=== PATIENT | male | born 1955 | race Caucasian/White ===

== ENCOUNTER 2016-12-10 16:44 | Inpatient (IN) | payer MEDICAID ==
[~2016-12-10] VITALS: Ht 170.2 cm; Wt 50.9 kg
[~2016-12-10 16:44] MED LIST: AMLO10TA2 PO; ATEN25TA PO; CEFD300C37 PO; Clonidine TD; DOCU100C33 PO; FENT1PAT77 TD; FOLI-17 PO; HYDR2TAB29 PO; HYDR4TAB PO; LEVO500T47 PO; LINE600T37 PO; MAGN400T26 PO; METR500T8 PO; MULT-484 PO; Nicotine TD; ONDA4TAB10 PO; OXYC10TA6 PO; OXYC15TA60 PO; Oxycodone Hcl/Acetaminophen PO; PANT40TA3 PO; POLY17PO5 PO; THIA100T10 PO; TRAM-47 PO
[2016-12-10] MEDS ORDERED: HYDROmorphone 1 MG/ML, 1ML ONE (16:59)
[2016-12-10] MEDS ORDERED: ONDANSETRON 2MG/ML, 2ML ONE (16:59)
[2016-12-10] MEDS ORDERED: PLEASE ENTER HEIGHT AND WEIGHT MC SCH (17:00)
[2016-12-10] MEDS ORDERED: HYDROmorphone 1 MG/ML, 1ML IM ONE (17:00)
[2016-12-10] MEDS ORDERED: ONDANSETRON ODT 4 MG PO ONE (17:00)
[2016-12-10 17:09] LABS: HEMATOCRIT 51.9 % (39.2-51.8); HEMOGLOBIN 17.5 g/dL (13.7-18.0); WHITE BLOOD COUNT 12.6 x10^3/uL (3.4-10)
[2016-12-10 17:15] LABS: ASPARTATE AMINO TRANSFERASE 14 U/L (15-37); BLOOD UREA NITROGEN 74 mg/dL (7-18)
[2016-12-10] MEDS ORDERED: ONDANSETRON 2MG/ML, 2ML IVPush ONE (17:30)
[2016-12-10] MEDS ORDERED: SODIUM CHLORIDE 0.9% 1,000ML IVBOLUS ONE (17:30)
[2016-12-10] MEDS ORDERED: HYDROmorphone 1 MG/ML, 1ML IV ONE (17:30)
[2016-12-10 17:36] LABS: DIFF TOTAL CELLS COUNTED 100 CELL DIFF
[2016-12-10 17:39] LABS: VERIFY COUNTS? YES
[2016-12-10] MEDS ORDERED: FENTANYL PF 100 MCG/2ML ONE ×2 (18:29→20:17)
[2016-12-10] MEDS: FENTANYL PF 100 MCG/2ML IV PRN ×2 (18:37→20:23)
[2016-12-10] MEDS ORDERED: TRAZODONE 50MG TABLET PO PRN (20:00)
[2016-12-10] MEDS ORDERED: ONDANSETRON 2MG/ML, 2ML IVPush PRN (20:00)
[2016-12-10] MEDS ORDERED: ACETAMINOPHEN 325 MG TABLET PO PRN (20:00)
[2016-12-10] MEDS: HYDROmorphone 2 MG/ML, 1ML IVPush PRN (22:01)
[2016-12-10] MEDS: HEPARIN 5,000 UNITS/ML, 1ML SQ SCH (22:01)
[2016-12-10] MEDS: LACTATED RINGERS 1,000 ML IV SCH (22:01)
[2016-12-11] MEDS: HYDROmorphone 2 MG/ML, 1ML IVPush PRN ×6 (01:04→20:58)
[2016-12-11 01:48] VITALS: BP 117/79
[2016-12-11 01:59] VITALS: BP 133/86
[2016-12-11] MEDS: LACTATED RINGERS 1,000 ML IV SCH ×3 (04:04→19:48)
[2016-12-11 05:39] LABS: HEMATOCRIT 42.6 % (39.2-51.8); HEMOGLOBIN 14.4 g/dL (13.7-18.0); WHITE BLOOD COUNT 9.1 x10^3/uL (3.4-10)
[2016-12-11 05:59] LABS: ASPARTATE AMINO TRANSFERASE 9 U/L (15-37); BLOOD UREA NITROGEN 70 mg/dL (7-18)
[2016-12-11] MEDS ORDERED: PANTOPRAZOLE 40 MG IV IVPush SCH (07:30)
[2016-12-11 07:56] VITALS: BP 123/77
[2016-12-11] MEDS ORDERED: AMLODIPINE 5 MG TABLET PO SCH (09:00)
[2016-12-11] MEDS: HEPARIN 5,000 UNITS/ML, 1ML SQ SCH ×2 (09:30→20:58)
[2016-12-11 14:00] VITALS: BP 132/72
[2016-12-11 20:09] VITALS: BP 104/67
[2016-12-12] MEDS: HYDROmorphone 2 MG/ML, 1ML IVPush PRN ×7 (00:02→22:18)
[2016-12-12 02:00] VITALS: BP 110/67
[2016-12-12] MEDS: LACTATED RINGERS 1,000 ML IV SCH ×4 (03:07→22:25)
[2016-12-12 05:09] LABS: HEMATOCRIT 37.8 % (39.2-51.8); HEMOGLOBIN 12.6 g/dL (13.7-18.0); WHITE BLOOD COUNT 8.1 x10^3/uL (3.4-10)
[2016-12-12 05:13] LABS: ASPARTATE AMINO TRANSFERASE 8 U/L (15-37); BLOOD UREA NITROGEN 50 mg/dL (7-18)
[2016-12-12 07:52] VITALS: BP 101/69
[2016-12-12] MEDS: PANTOPROZOLE 40MG TABLET PO SCH (09:38)
[2016-12-12] MEDS: AMLODIPINE 5 MG TABLET PO SCH (09:38)
[2016-12-12] MEDS: HEPARIN 5,000 UNITS/ML, 1ML SQ SCH ×2 (09:39→20:50)
[2016-12-12 12:14] VITALS: BP 124/73
[2016-12-12] MEDS: OXYcodone IR 5MG TABLET PO PRN ×2 (14:11→19:57)
[2016-12-12 19:55] VITALS: BP 127/73
[2016-12-13] MEDS: HYDROmorphone 2 MG/ML, 1ML IVPush PRN ×6 (02:20→23:13)
[2016-12-13] MEDS: OXYcodone IR 5MG TABLET PO PRN (04:12)
[2016-12-13] MEDS: LACTATED RINGERS 1,000 ML IV SCH ×3 (04:13→20:12)
[2016-12-13 07:15] VITALS: BP 130/81
[2016-12-13 08:18] LABS: BLOOD UREA NITROGEN 28 mg/dL (7-18)
[2016-12-13] MEDS ORDERED: HYDROmorphone 2 MG/ML, 1ML IVPush PRN (10:30)
[2016-12-13] MEDS: HYDROmorphone 4MG TABLET PO SCH ×3 (11:07→20:13)
[2016-12-13] MEDS: HEPARIN 5,000 UNITS/ML, 1ML SQ SCH ×2 (11:08→20:13)
[2016-12-13] MEDS: AMLODIPINE 5 MG TABLET PO SCH (11:08)
[2016-12-13] MEDS: PANTOPROZOLE 40MG TABLET PO SCH (11:08)
[2016-12-13] MEDS: THIAMINE 100MG TABLET PO SCH (11:08)
[2016-12-13 14:34] VITALS: BP 117/65
[2016-12-13 18:58] VITALS: BP 145/74
[2016-12-14 00:39] VITALS: BP 147/80
[2016-12-14] MEDS: LACTATED RINGERS 1,000 ML IV SCH ×2 (02:14→08:45)
[2016-12-14] MEDS: HYDROmorphone 2 MG/ML, 1ML IVPush PRN ×3 (02:15→08:48)
[2016-12-14 05:15] LABS: BLOOD UREA NITROGEN 18 mg/dL (7-18)
[2016-12-14] MEDS: PANTOPROZOLE 40MG TABLET PO SCH (07:34)
[2016-12-14 08:22] VITALS: BP 139/77
[2016-12-14] MEDS: HEPARIN 5,000 UNITS/ML, 1ML SQ SCH ×2 (08:47→20:54)
[2016-12-14] MEDS: AMLODIPINE 5 MG TABLET PO SCH (08:47)
[2016-12-14] MEDS: THIAMINE 100MG TABLET PO SCH (08:47)
[2016-12-14] MEDS ORDERED: HYDROmorphone 2MG TABLET ONE (09:35)
[2016-12-14] MEDS: HYDROmorphone 4MG TABLET PO SCH ×3 (09:37→20:54)
[2016-12-14] MEDS: CYCLOBENZAPRINE 10 MG TABLET PO SCH ×3 (11:53→20:55)
[2016-12-14 12:26] VITALS: BP 148/92
[2016-12-14] MEDS: HYDROmorphone 4MG TABLET PO PRN (13:14)
[2016-12-14 18:31] VITALS: BP 162/84
[2016-12-15] MEDS: HYDROmorphone 4MG TABLET PO PRN (00:07)
[2016-12-15 01:00] VITALS: BP 145/82
[2016-12-15 07:02] VITALS: BP 167/87
[2016-12-15] MEDS ORDERED: HYDR4TAB48 PO (07:36)
[2016-12-15] MEDS: AMLODIPINE 5 MG TABLET PO SCH (08:14)
[2016-12-15] MEDS: THIAMINE 100MG TABLET PO SCH (08:14)
[2016-12-15] MEDS: HYDROmorphone 4MG TABLET PO SCH (08:14)
[2016-12-15] MEDS: CYCLOBENZAPRINE 10 MG TABLET PO SCH (08:14)
[2016-12-15] MEDS: HEPARIN 5,000 UNITS/ML, 1ML SQ SCH (08:14)
[2016-12-15] MEDS: PANTOPROZOLE 40MG TABLET PO SCH (08:18)
[2016-12-15] MEDS ORDERED: HYDROmorphone 4MG TABLET PO PRN (15:00)
[2016-12-15] MEDS ORDERED: HYDROmorphone 4MG TABLET PO SCH (16:00)
== END 2016-12-15 15:30 | disposition home or self-care (01) | DRG 682 ==
LOC: ED 18:56 → EDIP 19:24 → 3NE 20:30 → DCLOUNGE 12-15 15:20
PROVIDERS: ADMIT Hospitalist; ATTEND Internal Medicine
DX: N17.0 Acute kidney failure with tubular necrosis (principal); K85.90 Acute pancreatitis without necrosis or infection, unspecified; E44.0 Moderate protein-calorie malnutrition; F11.20 Opioid dependence, uncomplicated; K86.1 Other chronic pancreatitis; Z68.1 Body mass index [BMI] 19.9 or less, adult; I10 Essential (primary) hypertension; E86.0 Dehydration; K21.9 Gastro-esophageal reflux disease without esophagitis; Z76.5 Malingerer [conscious simulation]; Z85.828 Personal history of other malignant neoplasm of skin; Z87.891 Personal history of nicotine dependence; Z90.49 Acquired absence of other specified parts of digestive tract
CPT/HCPCS: 36415; 74020; 74176; 80048; 80053; 80061; 81003; 82040; 82150; 82436; 82570; 83605; 83690; 83735; 84100; 84133; 84300; 84443; 85025; 96361; 96374; 96375; J1170; J1644; J2405; J3010; C9113; J7030; J7120

== ENCOUNTER 2017-03-18 23:58 | Inpatient (IN) | payer MEDICAID ==
[~2017-03-18] VITALS: Ht 170.2 cm; Wt 62.6 kg
[~2017-03-18 23:58] MED LIST changes: +HYDR4TAB48 PO
[2017-03-19 00:29] LABS: HEMATOCRIT 40.4 % (39.2-51.8); HEMOGLOBIN 13.6 g/dL (13.7-18.0); WHITE BLOOD COUNT 6.9 x10^3/uL (3.4-10)
[2017-03-19 00:41] LABS: ASPARTATE AMINO TRANSFERASE 27 U/L (15-37); BLOOD UREA NITROGEN 52 mg/dL (7-18)
[2017-03-19 00:45] LABS: ACETAMINOPHEN < 2 mcg/mL (10-30)
[2017-03-19] MEDS ORDERED: SODIUM CHLORIDE 0.9% 1,000ML IVBOLUS ONE (01:00)
[2017-03-19] MEDS: SODIUM CHLORIDE 0.9% 1,000 ML IV SCH ×2 (01:29→08:39)
[2017-03-19] MEDS ORDERED: DOCUSATE 100 MG CAPSULE PO PRN (01:30)
[2017-03-19] MEDS ORDERED: POLYETHYLENE GLYCOL 17 GM PACKET PO PRN (01:30)
[2017-03-19] MEDS ORDERED: MAGNESIUM SULFATE PMX 2GM/50ML 50 ML IV ONE (01:30)
[2017-03-19] MEDS: HEPARIN 5,000 UNITS/ML, 1ML SQ SCH ×3 (06:08→21:32)
[2017-03-19 07:30] LABS: BLOOD UREA NITROGEN 49 mg/dL (7-18)
[2017-03-19 07:55] VITALS: BP 108/66
[2017-03-19 08:10] LABS: DAU SCREEN DISCLAIMER
[2017-03-19] MEDS: ACETAMINOPHEN 325 MG TABLET PO PRN ×3 (08:17→17:21)
[2017-03-19] MEDS: OXYcodone IR 5MG TABLET PO PRN ×4 (08:17→21:32)
[2017-03-19] MEDS ORDERED: FAMOTIDINE 20 MG TABLET PO SCH (09:00)
[2017-03-19] MEDS: AMLODIPINE 5 MG TABLET PO SCH (10:15)
[2017-03-19] MEDS: ATENOLOL 50 MG TABLET PO SCH (10:16)
[2017-03-19] MEDS: D5%-0.45% NACL 1,000 ML IV SCH ×2 (12:27→21:32)
[2017-03-19 14:14] VITALS: BP 101/65
[2017-03-19 18:52] VITALS: BP 94/59
[2017-03-20 01:55] VITALS: BP 91/61
[2017-03-20] MEDS: HEPARIN 5,000 UNITS/ML, 1ML SQ SCH ×3 (05:00→20:41)
[2017-03-20 05:02] LABS: ASPARTATE AMINO TRANSFERASE 14 U/L (15-37); BLOOD UREA NITROGEN 37 mg/dL (7-18)
[2017-03-20 05:09] LABS: HEMATOCRIT 32.5 % (39.2-51.8); HEMOGLOBIN 10.9 g/dL (13.7-18.0); WHITE BLOOD COUNT 4.4 x10^3/uL (3.4-10)
[2017-03-20] MEDS: D5%-0.45% NACL 1,000 ML IV SCH ×2 (05:30→16:51)
[2017-03-20] MEDS: OXYcodone IR 5MG TABLET PO PRN ×4 (05:30→20:41)
[2017-03-20 07:39] VITALS: BP 110/70
[2017-03-20] MEDS: AMLODIPINE 5 MG TABLET PO SCH (09:05)
[2017-03-20] MEDS: FAMOTIDINE 20 MG TABLET PO SCH (09:43)
[2017-03-20] MEDS: ATENOLOL 50 MG TABLET PO SCH (09:45)
[2017-03-20] MEDS ORDERED: ONDANSETRON 2MG/ML, 2ML IVPush PRN (12:00)
[2017-03-20] MEDS ORDERED: LABETALOL 5MG/ML, 20ML IV PRN (12:00)
[2017-03-20] MEDS ORDERED: PROMETHAZINE 25 MG/ML, 1ML IV PRN (12:00)
[2017-03-20] MEDS ORDERED: hydrALAzine 20 MG/ML, 1ML IV PRN (12:00)
[2017-03-20] MEDS ORDERED: HYDROcodone/APAP 7.5-325MG/15ML UDC ONE (12:27)
[2017-03-20 13:21] VITALS: BP 108/68
[2017-03-20] MEDS: ONDANSETRON 2MG/ML, 2ML IVPush PRN (13:34)
[2017-03-20] MEDS ORDERED: CEFAZOLIN 1,000 MG ONE (15:09)
[2017-03-20 19:12] VITALS: BP 117/70
[2017-03-21] MEDS: OXYcodone IR 5MG TABLET PO PRN ×6 (00:37→21:10)
[2017-03-21] MEDS: D5%-0.45% NACL 1,000 ML IV SCH ×4 (00:37→23:48)
[2017-03-21 01:42] VITALS: BP 109/61
[2017-03-21] MEDS: HEPARIN 5,000 UNITS/ML, 1ML SQ SCH ×3 (04:42→21:11)
[2017-03-21 05:29] LABS: HEMATOCRIT 33.8 % (39.2-51.8); HEMOGLOBIN 11.4 g/dL (13.7-18.0)
[2017-03-21 05:40] LABS: BLOOD UREA NITROGEN 24 mg/dL (7-18)
[2017-03-21 08:44] VITALS: BP 123/80
[2017-03-21] MEDS: AMLODIPINE 5 MG TABLET PO SCH (09:10)
[2017-03-21] MEDS: FAMOTIDINE 20 MG TABLET PO SCH (09:10)
[2017-03-21] MEDS: ATENOLOL 50 MG TABLET PO SCH (09:10)
[2017-03-21] MEDS: ONDANSETRON 2MG/ML, 2ML IVPush PRN (09:18)
[2017-03-21] MEDS: SUCRALFATE 1 GM/10 ML UDC PO SCH ×3 (11:47→21:10)
[2017-03-21 12:28] VITALS: BP 126/77
[2017-03-21 13:03] VITALS: BP 117/80
[2017-03-21 20:49] VITALS: BP 128/75
[2017-03-21] MEDS: PANTOPROZOLE 40MG TABLET PO SCH (21:11)
[2017-03-22] MEDS: OXYcodone IR 5MG TABLET PO PRN ×5 (01:10→19:58)
[2017-03-22 02:00] VITALS: BP 123/72
[2017-03-22] MEDS: HEPARIN 5,000 UNITS/ML, 1ML SQ SCH ×3 (05:17→20:48)
[2017-03-22 07:39] VITALS: BP 123/73
[2017-03-22 07:53] LABS: BLOOD UREA NITROGEN 15 mg/dL (7-18)
[2017-03-22 07:59] LABS: ASPARTATE AMINO TRANSFERASE 12 U/L (15-37)
[2017-03-22] MEDS: D5%-0.45% NACL 1,000 ML IV SCH ×2 (08:40→20:48)
[2017-03-22] MEDS: SUCRALFATE 1 GM/10 ML UDC PO SCH ×4 (08:40→20:49)
[2017-03-22] MEDS: AMLODIPINE 5 MG TABLET PO SCH (08:41)
[2017-03-22] MEDS: ATENOLOL 50 MG TABLET PO SCH (08:41)
[2017-03-22] MEDS: PANTOPROZOLE 40MG TABLET PO SCH ×2 (08:41→20:49)
[2017-03-22] MEDS ORDERED: MAGNESIUM SULFATE PMX 4GM/100M 100 ML IV ONE (13:00)
[2017-03-22 13:06] VITALS: BP 113/67
[2017-03-22 20:02] VITALS: BP 105/65
[2017-03-22] MEDS: MAGNESIUM OXIDE 400 MG TABLET PO SCH (20:49)
[2017-03-23] MEDS: OXYcodone IR 5MG TABLET PO PRN ×6 (00:25→21:00)
[2017-03-23 02:33] VITALS: BP 123/67
[2017-03-23] MEDS: HEPARIN 5,000 UNITS/ML, 1ML SQ SCH ×3 (04:56→20:37)
[2017-03-23] MEDS: D5%-0.45% NACL 1,000 ML IV SCH ×2 (04:56→17:08)
[2017-03-23 06:42] VITALS: BP 128/64
[2017-03-23] MEDS: SUCRALFATE 1 GM/10 ML UDC PO SCH ×4 (09:53→20:37)
[2017-03-23] MEDS: AMLODIPINE 5 MG TABLET PO SCH (09:54)
[2017-03-23] MEDS: MAGNESIUM OXIDE 400 MG TABLET PO SCH ×2 (09:54→20:37)
[2017-03-23] MEDS: PANTOPROZOLE 40MG TABLET PO SCH ×2 (09:54→20:37)
[2017-03-23] MEDS: ATENOLOL 50 MG TABLET PO SCH (09:55)
[2017-03-23 09:59] LABS: BLOOD UREA NITROGEN 10 mg/dL (7-18)
[2017-03-23 13:24] VITALS: BP 120/79
[2017-03-23 19:15] VITALS: BP 108/64
[2017-03-24] MEDS: OXYcodone IR 5MG TABLET PO PRN ×6 (01:11→22:18)
[2017-03-24] MEDS: D5%-0.45% NACL 1,000 ML IV SCH (01:12)
[2017-03-24 02:10] VITALS: BP 130/71
[2017-03-24] MEDS: HEPARIN 5,000 UNITS/ML, 1ML SQ SCH ×3 (05:57→21:46)
[2017-03-24 07:20] VITALS: BP 132/72
[2017-03-24] MEDS ORDERED: ONDANSETRON 2MG/ML, 2ML IVPush PRN (08:30)
[2017-03-24] MEDS: AMLODIPINE 5 MG TABLET PO SCH (09:03)
[2017-03-24] MEDS: ATENOLOL 50 MG TABLET PO SCH (09:03)
[2017-03-24] MEDS: MAGNESIUM OXIDE 400 MG TABLET PO SCH ×2 (09:03→21:46)
[2017-03-24] MEDS: PANTOPROZOLE 40MG TABLET PO SCH ×2 (09:03→21:46)
[2017-03-24] MEDS: SUCRALFATE 1 GM/10 ML UDC PO SCH ×4 (09:04→21:46)
[2017-03-24 09:45] LABS: BLOOD UREA NITROGEN 10 mg/dL (7-18)
[2017-03-24 13:29] VITALS: BP 137/82
[2017-03-24 20:22] VITALS: BP 114/66
[2017-03-25 04:19] VITALS: BP 151/78
[2017-03-25] MEDS: HEPARIN 5,000 UNITS/ML, 1ML SQ SCH ×3 (04:25→20:38)
[2017-03-25] MEDS: OXYcodone IR 5MG TABLET PO PRN ×5 (04:25→21:54)
[2017-03-25 07:08] VITALS: BP 132/88
[2017-03-25] MEDS: SUCRALFATE 1 GM/10 ML UDC PO SCH ×4 (08:27→20:37)
[2017-03-25] MEDS: PANTOPROZOLE 40MG TABLET PO SCH ×2 (08:27→22:30)
[2017-03-25] MEDS: ATENOLOL 50 MG TABLET PO SCH (08:28)
[2017-03-25] MEDS: AMLODIPINE 5 MG TABLET PO SCH (08:28)
[2017-03-25] MEDS: MAGNESIUM CHLORIDE 64 MG TABLET.DR PO SCH ×2 (10:43→20:37)
[2017-03-25 13:51] VITALS: BP 124/79
[2017-03-25] MEDS ORDERED: SUCR1ORA5 PO (19:48)
[2017-03-25] MEDS ORDERED: PANT40TA5 PO (19:48)
[2017-03-25 20:16] VITALS: BP 122/71
[2017-03-26 01:44] VITALS: BP 133/74
[2017-03-26] MEDS: OXYcodone IR 5MG TABLET PO PRN ×5 (01:48→18:06)
[2017-03-26] MEDS: HEPARIN 5,000 UNITS/ML, 1ML SQ SCH ×3 (06:14→21:22)
[2017-03-26 06:55] VITALS: BP 130/72
[2017-03-26] MEDS: SUCRALFATE 1 GM/10 ML UDC PO SCH ×4 (07:16→21:21)
[2017-03-26] MEDS: PANTOPROZOLE 40MG TABLET PO SCH ×2 (07:16→21:22)
[2017-03-26] MEDS: ATENOLOL 50 MG TABLET PO SCH (09:00)
[2017-03-26] MEDS: AMLODIPINE 5 MG TABLET PO SCH (09:21)
[2017-03-26] MEDS: MAGNESIUM CHLORIDE 64 MG TABLET.DR PO SCH ×2 (09:21→21:22)
[2017-03-26 13:56] VITALS: BP 157/83
[2017-03-26 19:56] VITALS: BP 145/78
[2017-03-27] MEDS: OXYcodone IR 5MG TABLET PO PRN ×3 (00:26→12:25)
[2017-03-27 01:19] VITALS: BP 125/76
[2017-03-27] MEDS: HEPARIN 5,000 UNITS/ML, 1ML SQ SCH ×2 (05:10→12:25)
[2017-03-27 07:08] VITALS: BP 155/80
[2017-03-27] MEDS: SUCRALFATE 1 GM/10 ML UDC PO SCH ×2 (08:16→11:29)
[2017-03-27] MEDS: PANTOPROZOLE 40MG TABLET PO SCH (08:17)
[2017-03-27] MEDS: AMLODIPINE 5 MG TABLET PO SCH (08:17)
[2017-03-27] MEDS: ATENOLOL 50 MG TABLET PO SCH (08:17)
[2017-03-27] MEDS: MAGNESIUM CHLORIDE 64 MG TABLET.DR PO SCH (08:17)
== END 2017-03-27 13:45 | disposition home or self-care (01) | DRG 682 ==
LOC: ED 23:59 → SUATTDRO 03-19 01:26 → EDIP 03-19 01:59 → 3NW 03-19 02:18 → 3NE 03-21 12:45 → DCLOUNGE 03-27 13:06
PROVIDERS: ADMIT Family Medicine; ATTEND Family Medicine
PROC: 0DBN8ZX Excision of Sigmoid Colon, Via Natural or Artificial Opening Endoscopic, Diagnostic (ICD-10-PCS; principal; 2017-03-19)
DX: N17.0 Acute kidney failure with tubular necrosis (principal); G92 Toxic encephalopathy; K86.1 Other chronic pancreatitis; M62.82 Rhabdomyolysis; K21.9 Gastro-esophageal reflux disease without esophagitis; T50.905A Adverse effect of unspecified drugs, medicaments and biological substances, initial encounter; I12.9 Hypertensive chronic kidney disease with stage 1 through stage 4 chronic kidney disease, or unspecified chronic kidney disease; N18.9 Chronic kidney disease, unspecified; K29.70 Gastritis, unspecified, without bleeding; Z85.828 Personal history of other malignant neoplasm of skin; Z90.49 Acquired absence of other specified parts of digestive tract; Z79.899 Other long term (current) drug therapy
CPT/HCPCS: 36415; 70450; 74176; 80048; 80053; 80307; 80329; 81003; 82040; 82140; 82150; 82550; 83690; 83735; 84100; 85025; 88305; 93005; 96374; J0690; J1644; J2405; G0479; G0480; J3475; J7030

== ENCOUNTER 2017-04-08 01:11 | Inpatient (IN) | payer MEDICAID ==
[~2017-04-08] VITALS: Ht 167.6 cm; Wt 59.6 kg
[~2017-04-08 01:11] MED LIST changes: +PANT40TA5 PO; +SUCR1ORA5 PO
[2017-04-08] MEDS ORDERED: SODIUM CHLORIDE 0.9% 1,000ML IVBOLUS ONE (01:30)
[2017-04-08 02:04] LABS: HEMATOCRIT 31.2 % (39.2-51.8); HEMOGLOBIN 10.5 g/dL (13.7-18.0); WHITE BLOOD COUNT 7.8 x10^3/uL (3.4-10)
[2017-04-08 02:14] LABS: ASPARTATE AMINO TRANSFERASE 23 U/L (15-37); BLOOD UREA NITROGEN 34 mg/dL (7-18)
[2017-04-08 02:19] LABS: ACETAMINOPHEN < 2 mcg/mL (10-30)
[2017-04-08 02:39] LABS: DAU SCREEN DISCLAIMER
[2017-04-08 06:54] VITALS: BP 112/69
[2017-04-08] MEDS ORDERED: ONDANSETRON 2MG/ML, 2ML IVPush PRN (08:00)
[2017-04-08] MEDS ORDERED: PROMETHAZINE 25 MG/ML, 1ML IM PRN (08:00)
[2017-04-08] MEDS ORDERED: ONDANSETRON ODT 4 MG PO PRN (08:00)
[2017-04-08] MEDS ORDERED: MAGNESIUM SULFATE 3 GM in SODIUM CHLORIDE 0.9% 100 ML IV ONE (08:00)
[2017-04-08] MEDS ORDERED: DOCUSATE 100 MG CAPSULE PO PRN (08:00)
[2017-04-08] MEDS ORDERED: BISACODYL 10 MG SUPP PR PRN (08:00)
[2017-04-08] MEDS: SODIUM CHLORIDE 0.9% 1,000 ML IV SCH (08:33)
[2017-04-08] MEDS: ASPIRIN 325 MG TABLET EC PO SCH (08:34)
[2017-04-08 14:02] VITALS: BP 132/74
[2017-04-08 20:25] VITALS: BP 107/65
[2017-04-09] MEDS: SODIUM CHLORIDE 0.9% 1,000 ML IV SCH ×2 (00:45→06:43)
[2017-04-09 03:27] VITALS: BP 109/65
[2017-04-09 04:42] LABS: HEMATOCRIT 31.5 % (39.2-51.8); HEMOGLOBIN 10.6 g/dL (13.7-18.0); WHITE BLOOD COUNT 5.8 x10^3/uL (3.4-10)
[2017-04-09 04:48] LABS: BLOOD UREA NITROGEN 24 mg/dL (7-18)
[2017-04-09] MEDS: ASPIRIN 325 MG TABLET EC PO SCH (05:36)
[2017-04-09 07:38] VITALS: BP 104/56
[2017-04-09 15:55] VITALS: BP 110/67
[2017-04-09 19:45] VITALS: BP 111/64
[2017-04-10 01:53] VITALS: BP 136/74
[2017-04-10 05:26] LABS: HEMATOCRIT 32.4 % (39.2-51.8); WHITE BLOOD COUNT 6.9 x10^3/uL (3.4-10)
[2017-04-10 05:46] LABS: BLOOD UREA NITROGEN 17 mg/dL (7-18)
[2017-04-10] MEDS: ASPIRIN 325 MG TABLET EC PO SCH (06:00)
[2017-04-10] MEDS ORDERED: SODIUM CHLORIDE 0.9% 1,000 ML IV SCH (07:45)
[2017-04-10 08:32] VITALS: BP 119/69
[2017-04-10] MEDS ORDERED: FOLIC ACID 1 MG TABLET PO SCH (09:00)
[2017-04-10] MEDS ORDERED: MAGNESIUM SULFATE PMX 2GM/50ML 50 ML IV ONE (09:00)
[2017-04-10] MEDS ORDERED: THIAMINE 100MG TABLET PO SCH (09:00)
== END 2017-04-10 14:17 | disposition home or self-care (01) | DRG 917 ==
LOC: ED 01:55 → EDIP 02:27 → 5SO 05:14 → 4EST 04-09 11:54 → DCLOUNGE 04-10 14:00
PROVIDERS: ADMIT Surgery; ATTEND Internal Medicine
DX: T40.2X1A Poisoning by other opioids, accidental (unintentional), initial encounter (principal); E43 Unspecified severe protein-calorie malnutrition; N17.0 Acute kidney failure with tubular necrosis; G92 Toxic encephalopathy; E87.2 Acidosis; F11.20 Opioid dependence, uncomplicated; N18.4 Chronic kidney disease, stage 4 (severe); Y92.89 Other specified places as the place of occurrence of the external cause; E83.42 Hypomagnesemia; G89.4 Chronic pain syndrome; I12.9 Hypertensive chronic kidney disease with stage 1 through stage 4 chronic kidney disease, or unspecified chronic kidney disease; K21.9 Gastro-esophageal reflux disease without esophagitis; R73.9 Hyperglycemia, unspecified; Z68.21 Body mass index [BMI] 21.0-21.9, adult
CPT/HCPCS: 36415; 70450; 80048; 80053; 80076; 80307; 80329; 81003; 82040; 82140; 82550; 82962; 82977; 83735; 85025; J3475; G0479; G0480; J7030